=== PATIENT | male | born 1945 | race Caucasian/White ===

== ENCOUNTER 2016-10-11 11:44 | Day surgery (SDC) | payer MEDICARE, BC ==
[~2016-10-11] VITALS: Ht 180.3 cm; Wt 83.2 kg
--- NOTE | ~2016-10-11 | OR ---
PATIENT'S NAME: ELISA CURTIS [facility] AGE: 71 Y [address] 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 POSTOPERATIVE DIAGNOSIS: Cervical disk herniation with osteophyte herniation, resulting in spinal canal stenosis with cord compression with accompanying nerve root compression. OPERATIONS PROPOSED AND PERFORMED: 1. Anterior cervical microdiskectomy and fusion at C4-C5 and C5-C6. 2. Anterior cervical microdiskectomy with decompression of the spinal cord at C4-C5 and C5-C6 by removing the posterior osteophytes at these levels. 3. Fusion using allograft. 4. Allograft. 5. Plating using the Inion absorbable plate, C4-C5 and C5-C6. 6. Fluoroscopy with interpretation. 7. Microscope. DESCRIPTION OF PROCEDURE: Under general anesthesia, the patient was positioned supine. Neck was slightly extended. The neck and upper chest were prepped and draped in the usual fashion. Next, a curvilinear incision was then carried out extending from the anterior border of the sternomastoid muscle to the midline. Platysma was really almost nonexistent, so we therefore continued our dissection in the plane between the sternomastoid muscle and the strap muscles working medial to the carotid sheath and carotid artery. This brought us to the prevertebral fascia, which we cauterized and incised. In the meantime we get into this level, we retracted the strap muscles as well as the esophagus and trachea away from the midline. We cauterized the prevertebral fascia, got us to the vertebral bodies and disk spaces. We put two spinal needles in adjacent disk spaces. We got a fluoro of the neck, lateral fluoro, and this showed that the needles were at the C4- C5 and C5-C6 disk spaces. We packed these disk spaces. The findings here were very prominent anterior osteophytes with marked narrowing of the disk space. We were able to remove a small amount of disk material because the disk space was so narrow. Using the 1 mm Kerrison as well as occasionally 2 mm Kerrison, we were able to remove the anterior osteophyte and thus we were PATIENT'S NAME: ELISA CURTIS [facility] AGE: 71 Y [address] ROOM: [address] [address] LOCATION: [facility] ADMIT DATE: 10/11/2016 OR/Procedure Report DISCHARGE DATE: FAMILY PHYSICIAN: Roberto Hill MD ATTENDING PHYSICIAN: Roxanna Byrd able to see where the operating narrow disk space was. Next, the longus colli muscles were dissected away from their attachments to the vertebral bodies and we used the blacksmith apprentice self-retaining retractors to retract the esophagus and trachea, and we made sure that the transverse blades were under the longus colli muscles. The blades were the smooth blades. After this was done, we screwed the distraction rods onto the C4, C5, and C6 vertebral bodies. Starting at the C5-C6 level, we distracted the disk space and brought the microscope in. With the aid of the microscope, we were able to continue removing the cervical disk and the prominent thing here was that the disk space was almost nonexistent even after distracting or attempting to distract and consequently with the magnification from the microscope we were able to then remove the really significant posterior osteophytes in the posterior- inferior and posterior-superior portions of the C5 and C6 vertebral bodies. In doing this, we almost likely tried a created space for cells and at the same time we were able to decompress the spinal cord as well as the nerve roots by removing the osteophytes that were in the lateral recess towards the neural foramen. After we had done this, we removed the posterior longitudinal ligament. This we did by using the nerve hook, placing the nerve hook posterior to the vertebral bodies, twirled it around, and using the knife with a Yu[place]iatam blade to cut the posterior longitudinal ligament. On doing this, we were therefore able to expose the dura and we continued removing the posterior osteophyte until there was no evidence of compression of the dura and indirectly the spinal cord. After this was done, this also entailed removing portions of the posterior inferior part of the vertebral bodies as well as the posterior superior part of the vertebral body at C6. After we had done this, one could see that the spinal cord was adequately decompressed. There was some oozing from the bone and we therefore got some powdered Gelfoam mixed with thrombin and filled the empty disk space with it. We released the distraction and we then went to the C4-C5 level, did a similar thing. The findings here were not as severe as it was at C5-C6 body. This level also had prominent posterior osteophytes as well as this extended into the lateral recesses bilaterally. After we had succeeded in removing the posterior longitudinal ligament and satisfying ourselves, though we had excised the posterior osteophyte that was compressing the dura as well as the posterior longitudinal ligament that apparently buckled and was also compressing the dura. After this had been done, we then used the allograft template to get the appropriate size allograft for the fusion. We used one, which had a height of 6 cm. We tapped this into the empty disk space and the areas we had decompressed. The distraction was then released and we then did a similar thing at the C5-C6 level after washing off the powdered Gelfoam. We used the 6 cm height allograft also for this level. After that was done, the distractor rods were removed. The holes they created were plugged with bone wax. Next, soft tissues were then removed from the anterior-inferior and anterior-superior as well as the anterior parts of the C4, C6, and C5 vertebral bodies respectively; and having done that, the anterior osteophytes PATIENT'S NAME: EILSA CURTIS [facility] AGE: 71 Y [address] ROOM: [address] [address] LOCATION: [facility] ADMIT DATE: 10/11/2016 OR/Procedure Report DISCHARGE DATE: FAMILY PHYSICIAN: Roberto Hill MD ATTENDING PHYSICIAN: Roxanna Byrd were further nibbled down to come flush with the vertebral bodies. Next, we got the template for the Inion absorbable plate and we then went ahead put the template in sterile warm saline and was able to give it a little bit of lordosis so as to make it comply with the coverage of the cervical spine. After that was done, the plate was then placed anterior to the vertebral bodies straddling the C4-C5 and C5-C6 disk spaces. Two plate holding pins were then used to hold the plate in position. Next, starting with the middle holes, which was opposite the C5 vertebral bodies, we used the double-barrel guide and placed it in the receptacle on the plate and starting with the drill. We drilled through the hole in the plate into the vertebral bodies, tapped this area with a portion we drilled, and then put the screws to hold the plate in position. A similar thing was then carried out on the other side of the plate. Next, still using the double-barrel guide, placed the guide over the plate holding pin, and then started by drilling and tapping through the other hole in the plate. Next, we removed the plate holding pin through the guide and then drilled and tapped as we had done previously and then put the screw in. The tap was then removed from the other side and the screw was then put in. A similar thing was then carried out in the last 2 holes. After this was done, the wound was thoroughly irrigated with bacitracin irrigation and closed in a single layer primary because the patient did not have any platysma at all. After this was done, we brought in the C-arm again and did a lateral and AP fluoro of the cervical spine and it showed that the plate as well as the screws and graft were in good position. The patient tolerated the procedure well and was taken to the recovery room. MD ZOHAIB BARRERA/yris /[id number] d: 10/12/16 0142 t: 11/12/16 1218, OPERATIVE SUMMARY
[~2016-10-11 11:44] MED LIST: AMARYL4 MG PO; ASPIRIN EC81 MG PO; CORDARONE,PACE200 MG PO; GLUCOPHAGE XR500 M1 PO; NORVASC5 MG PO; PROTONIX40 MG PO; VASOTEC20 M1 PO; XARELTO20 MG PO; ZOCOR20 MG PO
--- NOTE | 2016-10-12 04:31 | NUR ---
Patient is alert and oriented x3, pain well controled with percocet, has rested well, shadow drainage to dressing, VSS stable after pain meds and resting HR was 46 patient said he normally runs low and was asymtomatic, ambulated to the bathroom was unable to void strait cathed for 500, csm with in normal limits, plans discharge home today
[2016-10-12] MEDS ORDERED: PERCOCET 5-3251 EACH PO (16:12)
--- NOTE | 2016-10-12 19:19 | NUR ---
Pt and spouse reviewed DC plan and RX. Offered no questions or concerns. Pt requested copy of DC plan to be given to his [facility] physician in [place], [place]. Copy of DC plan given to pt. Pt DC to home with spouse in stable condition.
--- NOTE | 2016-10-12 19:22 | NUR ---
Pt unable to void. Bladder scanned x 2 prior to and after drinking 600ml of fluids. Bladder scanned amounts 233ml, and 322ml. Pt denies discomfort, and indicated he has had retention issues in the past. Dr. Byrd notified, and he discussed with pt. Pt refused to be straight cath, stated he would be fine. Pt dc to home with complaints.
== END 2016-10-12 16:43 | disposition disaster alternative care site (69) ==
LOC: GSDC 11:44 → GPCU 11:44 → G3N 11:44 → UNDOADMIN 11:44 → G3N 19:50 → GPCU 19:50 → G3N 10-12 16:43 → GSDC 10-12 16:43
PROC: 0RG20K0 Fusion of 2 or more Cervical Vertebral Joints with Nonautologous Tissue Substitute, Anterior Approach, Anterior Column, Open Approach (ICD-10-PCS; principal; 2016-10-11)
PROC: 01N10ZZ Release Cervical Nerve, Open Approach (ICD-10-PCS; principal; 2016-10-11)
PROC: 0RB30ZZ Excision of Cervical Vertebral Disc, Open Approach (ICD-10-PCS; principal; 2016-10-11)
PROC: 00NW0ZZ Release Cervical Spinal Cord, Open Approach (ICD-10-PCS; principal; 2016-10-11)
DX: M50.222 Other cervical disc displacement at C5-C6 level (principal); M48.02 Spinal stenosis, cervical region; M47.812 Spondylosis without myelopathy or radiculopathy, cervical region; E11.9 Type 2 diabetes mellitus without complications; K21.9 Gastro-esophageal reflux disease without esophagitis; I10 Essential (primary) hypertension; M25.78 Osteophyte, vertebrae; F17.220 Nicotine dependence, chewing tobacco, uncomplicated; Z79.84 Long term (current) use of oral hypoglycemic drugs; Z79.82 Long term (current) use of aspirin; I48.91 Unspecified atrial fibrillation; E78.00 Pure hypercholesterolemia, unspecified
CPT/HCPCS: C1713; J0690; J1100; J2001; J2250; J2405; J7030